=== PATIENT | male | born 1960 | race Caucasian/White ===

== ENCOUNTER 2017-04-18 13:08 | Day surgery (SDC) | payer BC ==
[2017-04-17 16:20] VITALS: BMI 29.5
[2017-04-18 14:21] LABS: #Eosinphils 0.2 thou/uL (0.0-0.7); #Lymphocytes 1.8 thou/uL (1.20-3.40); #Monocytes 0.6 thou/uL (0.11-0.59); #Neutrophils 2.8 thou/uL (1.40-6.50); %Basophils 0.9 % (0.0-1.0); %Lymphocytes 33.6 % (21.0-51.0); %Monocytes 11.2 % (0.0-10.0); %Neutrophils 51.4 % (42.0-75.0); Hemoglobin 13.8 g/dL (14.0-18.0); Mean Corpuscular HGB CONC 32.6 g/dL (32.0-36.0); Mean Corpuscular Hemoglobin 29.9 pg (27.0-31.0); Mean Corpuscular Volume 91.9 fl (80.0-94.0); Platelet Count 306 thou/uL (130-400); RBC Distribution Width 12.2 % (11.5-14.5); Red Blood Cell (RBC) Count 4.61 mill/uL (4.70-6.10); White Blood Cell (WBC) Count 5.4 thou/uL (4.8-10.8)
[2017-04-18] MEDS ORDERED: Fentanyl 100 MCG/2 ML VIAL ONE (14:46)
[2017-04-18] MEDS ORDERED: CEFAZOLIN/Water 2 GM/20 ML SYRINGE ONE (14:47)
[2017-04-18] MEDS ORDERED: Lidocaine 2% PF 5 ML VIAL ONE (15:21)
[2017-04-18] MEDS ORDERED: Bupivacaine PF 0.5% 30 ML VIAL ONE (15:21)
[2017-04-18] MEDS ORDERED: Neomycin-Polymyxin 1 ML AMP ONE (15:32)
[2017-04-18] MEDS ORDERED: Bacitracin Zinc Ointment 30 gm TUBE ONE (15:38)
[2017-04-18] MEDS ORDERED: ePHEDrine/0.9% NaCl/PF SYRINGE 50 mg/10 ml ONE (15:56)
[2017-04-18] MEDS ORDERED: Lidocaine 1% PF 5 ML VIAL ONE (15:56)
[2017-04-18] MEDS ORDERED: PHENYLEPHRINE-NS 100 MCG/ML 10 ML SYRINGE ONE (15:56)
[2017-04-18] MEDS ORDERED: Ondansetron HCl/PF 4 MG/2 ML Vial ONE (15:56)
[2017-04-18] MEDS ORDERED: Succinylcholine Chloride 20 MG/ML 10 ml SYRINGE FS ONE (15:56)
[2017-04-18] MEDS ORDERED: PROPOFOL 200 MG/20 ML VIAL ONE (15:56)
== END 2017-04-18 17:25 | disposition home or self-care (01) ==
LOC: SDC 13:08
PROVIDERS: ATTEND Podiatrist
PROC: 0Y6T0Z0 Detachment at Right 3rd Toe, Complete, Open Approach (ICD-10-PCS; principal; 2017-04-18)
DX: M86.9 Osteomyelitis, unspecified (principal); B95.61 Methicillin susceptible Staphylococcus aureus infection as the cause of diseases classified elsewhere; B95.2 Enterococcus as the cause of diseases classified elsewhere; F32.9 Major depressive disorder, single episode, unspecified; I10 Essential (primary) hypertension; I73.9 Peripheral vascular disease, unspecified; Z85.828 Personal history of other malignant neoplasm of skin; Z79.2 Long term (current) use of antibiotics; Z79.899 Other long term (current) drug therapy; Z96.642 Presence of left artificial hip joint; Z98.890 Other specified postprocedural states
CPT/HCPCS: 36415; 85025; 87070; 87077; 87186; 87205; J2001; J2405; J2704; J3010; S0020

== ENCOUNTER 2017-12-15 12:17 | Inpatient (IN) | payer BC ==
[2017-12-17] MEDS ORDERED: Bacitracin Zinc Ointment 30 gm TUBE ONE (06:43)
[2017-12-17] MEDS ORDERED: Sodium Chloride 0.9% 20 ML ONE (06:43)
[2017-12-17] MEDS ORDERED: Thrombin 5000 UNITS/5 ML VIAL ONE (06:43)
[2017-12-17 06:48] LABS: #Eosinphils 0.2 thou/uL (0.0-0.7); #Lymphocytes 2.2 thou/uL (1.20-3.40); #Monocytes 0.6 thou/uL (0.11-0.59); #Neutrophils 2.9 thou/uL (1.40-6.50); %Basophils 0.7 % (0.0-1.0); %Lymphocytes 37.1 % (21.0-51.0); %Monocytes 10.2 % (0.0-10.0); %Neutrophils 48.1 % (42.0-75.0); Hemoglobin 14.2 g/dL (14.0-18.0); Mean Corpuscular HGB CONC 34.9 g/dL (32.0-36.0); Mean Corpuscular Hemoglobin 31.5 pg (27.0-31.0); Mean Corpuscular Volume 90.4 fL (78.0-98.0); Mean Platelet Volume 6.8 fL (7.4-10.4); Platelet Count 246 thou/uL (130-400); RBC Distribution Width 11.9 % (11.5-14.5); Red Blood Cell (RBC) Count 4.49 mill/uL (4.70-6.10); White Blood Cell (WBC) Count 5.9 thou/uL (4.8-10.8)
[2017-12-17] MEDS ORDERED: Fentanyl 100 MCG/2 ML VIAL ONE ×3 (06:48→10:43)
[2017-12-17] MEDS ORDERED: CEFAZOLIN/Water 2 GM/20 ML SYRINGE ONE (06:51)
[2017-12-17] MEDS ORDERED: Midazolam HCl 2 mg/2 ml Vial ONE (06:59)
[2017-12-17 07:08] LABS: Anion Gap 12 mmol/L (10-20); BUN (Urea Nitrogen) 28 mg/dL (8.4-25.7); Calc. Creatinine Clearance 128 mL/min (70-130); Calcium 9.1 mg/dL (7.8-10.44); Carbon Dioxide 24 mmol/L (22-29); Chloride 108 mmol/L (98-107); Estimated GFR-MDRD 79; Glucose 97 mg/dL (70-105); Potassium 3.8 mmol/L (3.5-5.1); Sodium 140 mmol/L (136-145)
[2017-12-17] MEDS ORDERED: Albuterol Sulfate HFA (OR ONLY) ONE (08:38)
[2017-12-17] MEDS ORDERED: PHENYLEPHRINE-NS 100 MCG/ML 10 ML SYRINGE ONE ×2 (08:46→13:29)
[2017-12-17] MEDS ORDERED: Ondansetron HCl/PF 4 MG/2 ML Vial IVP PRN ×2 (09:23→10:00)
[2017-12-17] MEDS ORDERED: Meperidine HCl/PF 25 MG/ML VIAL SLOW IVP PRN (09:23)
[2017-12-17] MEDS ORDERED: Promethazine HCl 25 MG/ML VIAL IM PRN ×2 (09:23→09:57)
[2017-12-17] MEDS ORDERED: Promethazine HCl 25 MG/ML VIAL SLOW IVP PRN (09:23)
[2017-12-17] MEDS ORDERED: diphenhydrAMINE 25 MG CAP PO PRN (09:57)
[2017-12-17] MEDS ORDERED: HYDROcodone/Acetaminophen 10/325 mg Tablet PO PRN (09:57)
[2017-12-17] MEDS ORDERED: Promethazine 25 MG TAB PO PRN (09:57)
[2017-12-17] MEDS ORDERED: diphenhydrAMINE 50 MG/ML VIAL IVP PRN (09:57)
[2017-12-17] MEDS ORDERED: Promethazine HCl 12.5 MG SUPP PR PRN (09:57)
[2017-12-17] MEDS ORDERED: traMADol HCl 50 MG TAB PO PRN ×2 (09:57)
[2017-12-17] MEDS ORDERED: Bisacodyl 10 MG SUPP PR PRN (09:57)
[2017-12-17] MEDS ORDERED: Milk Of Magnesia 30 ML UDCUP PO PRN (09:57)
[2017-12-17] MEDS ORDERED: ALPRAZolam 0.5 MG TAB PO PRN (11:47)
[2017-12-17] MEDS: Sodium Chloride 0.9% 1,000 ML IV SCH ×2 (11:49→23:45)
[2017-12-17] MEDS: Morphine 4 MG/ML VIAL IV PRN ×2 (12:29→18:46)
--- NOTE | 2017-12-17 12:29 | OP ---
DATE OF PROCEDURE: 12/17/2017 SURGEON: Steve Viveros M.D. PUBLIC [employer] OUTREACH WORKER: Gabriela Stephen PROCEDURE: Anterior cervical discectomy C3-4, interbody arthrodesis, intravertebral biomechanical de vice, local morselized autograft, demineralized bone matrix, anterior titanium instrumentation C3-4, posterior approach C3-4 laminectomy, posterolateral arthrodesis, lateral mass screw instrumentation, demineralized bone matrix, local morselized autograft C3-C4. PROCEDURE IN DETAIL: The patient was brought to the operating room intubated and positioned supine i n modest extension on a gel-filled donut. Incision was made in the right precervical area and dissec ting medial to the sternocleidomastoid muscle, identified the anterior cervical spine and our level w as confirmed by x-ray. We placed distraction across C3-4, debrided anterior osteophytes and using th e operating microscope and microdissection techniques, completely decompressed the spinal cord from f oramen to foramen. The bony endplates were then decorticated for the purpose of arthrodesis and appr opriately sized intravertebral biomechanical PEEK device was brought into the field, filled with annamarie neralized bone matrix, local morselized autograft, and tapped into place securely at C3-4. Next, an anterior plate was brought in the field and secured to C3 and C4 using two 14 mm screws at each level . The wound was then extensively irrigated, immaculate hemostasis was secured, and the wound was camden sed in anatomic layers. The patient was then rolled into the prone position on gel-filled chest rolls with the head fixed in a neutral position in the lou heading pinner. A midline cervical incision was made exposing C3 and C 4 and our level was confirmed by x-ray. We performed complete C4 and complete C3 laminectomies compl etely decompressing the spinal cord. Lateral mass screws were then placed at right C3, right C4, sec ured by samuel, connected by nuts which were final tightened. The wound was then extensively irrigated, immaculate hemostasis was secured. A combination of demineralized bone matrix, local morselized aut ograft was laid over the laminar and posterolateral surfaces for the purpose of arthrodesis. Vancomy tamra powder was applied and the wound was closed in anatomic layers.
[2017-12-17] MEDS ORDERED: Dexamethasone 20 MG/5 ML VIAL ONE (13:29)
[2017-12-17] MEDS ORDERED: Lidocaine 1% PF 5 ML VIAL ONE (13:29)
[2017-12-17] MEDS ORDERED: Glycopyrrolate 0.2 MG/ML 5 ML SYRINGE ONE (13:29)
[2017-12-17] MEDS ORDERED: ePHEDrine/0.9% NaCl/PF SYRINGE 50 mg/10 ml ONE (13:29)
[2017-12-17] MEDS ORDERED: PROPOFOL 200 MG/20 ML VIAL ONE (13:29)
[2017-12-17] MEDS ORDERED: Ondansetron HCl/PF 4 MG/2 ML Vial ONE (13:29)
[2017-12-17 13:36] VITALS: BMI 28.3
[2017-12-17] MEDS: CEFAZOLIN/Water 2 GM/20 ML SYRINGE SLOW IVP SCH ×2 (14:00→21:34)
[2017-12-17] MEDS ORDERED: DICLOFENAC SODIUM 75 MG PO SCH (21:00)
[2017-12-17] MEDS: HYDROcodone/Acetaminophen 10/325 mg Tablet PO PRN (21:33)
[2017-12-17] MEDS: Tamsulosin HCl 0.4 MG CAP PO SCH (21:34)
[2017-12-18] MEDS: tiZANidine HCl 4 MG TAB PO PRN ×2 (06:18→12:23)
--- NOTE | 2017-12-18 07:29 | PRG ---
DATE OF SERVICE: 12/18/2017 Postoperative day #1, status post C3-4 anterior and posterior decompression and fusion. Overnight, the patient reports his pain was well controlled, although he did require p.r.n. doses of morphine. He is also using a muscle relaxer which he reports is significantly helpful with muscle spasms between the shoulder blades and along the back of the neck. He is tolerating a regular diet and up walking in the department. The patient did have some urinary retention overnight which required straight cath x1. We will continue to monitor his urinary output with intermittent bladder scans throughout the day. Pt is comfortable, NAD. He has improved strength and less dysesthesias in his LUE. Incisions are dry and soft. If his urinary retention resolves then I feel that he can likely be discharged this afternoon or in the morning. We will continue to monitor and nursing will notify me of his progress to assess whether he can be discharged this afternoon or reassess in the morning. NOEL
[2017-12-18] MEDS: Bupropion 150 MG XL TAB PO SCH (08:20)
[2017-12-18] MEDS: Tamsulosin HCl 0.4 MG CAP PO SCH ×2 (08:21→21:12)
[2017-12-18] MEDS: Multivit, Therapeutic 1 TAB PO SCH (08:22)
[2017-12-18] MEDS ORDERED: LISDEXAMFETAMINE DIMESYLATE PO SCH (09:00)
[2017-12-18] MEDS ORDERED: TADALAFIL PO SCH (09:00)
[2017-12-18] MEDS: Sodium Chloride 0.9% 1,000 ML IV SCH (12:15)
[2017-12-18] MEDS: HYDROcodone/Acetaminophen 10/325 mg Tablet PO PRN (21:15)
[2017-12-19] MEDS: Sodium Chloride 0.9% 1,000 ML IV SCH (03:24)
[2017-12-19 08:05] VITALS: BP 162/97; TEMP 98.5
[2017-12-19] MEDS ORDERED: Tamsulosin HCl 0.4 MG CAP PO SCH (09:00)
[2017-12-19] MEDS: Bupropion 150 MG XL TAB PO SCH (09:59)
[2017-12-19] MEDS: Multivit, Therapeutic 1 TAB PO SCH (10:00)
[2017-12-19] MEDS: tiZANidine HCl 4 MG TAB PO PRN (10:00)
[2017-12-19] MEDS: Tamsulosin HCl 0.4 MG CAP PO SCH (10:00)
[2017-12-19] MEDS: HYDROcodone/Acetaminophen 10/325 mg Tablet PO PRN (10:58)
--- NOTE | 2017-12-19 12:20 | DIS ---
DATE OF ADMISSION: 12/17/2017 DATE OF DISCHARGE: 12/19/2017 ATTENDING PHYSICIAN: Dr. Steve Viveros HOSPITAL COURSE: Patient is a 57-year-old male status post C3-4 anterior and posterior dec ompression and fusion. He is postoperative day #2. He reports his pain is well controlled with p.o. medications, he is tolerating regular diet. Postoperatively, the patient did have some urinary rete ntion which required p.r.n. straight cath x2. He is now voiding appropriately and no longer retainin g. He does have a history of BPH and is taking Flomax 0.4 mg b.i.d. We will continue this medicatio n and will recommend outpatient Urology followup. With regards to his postoperative incision, it nereida ears to be healing well and is soft in the anterior portion and remains dry over both dressings. He has some improved sensation in the left upper extremity and feels like he may be improving some stren gth, although this is not appreciated on my exam at this time. At this point, I feel the patient cou ld be appropriately discharged to home and we will plan to follow up in the office in 2 weeks. I hav e discussed home care precautions and provided patient with prescriptions for hydrocodone, Zanaflex a nd Keflex. Please reach out to Neurosurgery for additional questions or concerns.
== END 2017-12-19 11:18 | disposition home or self-care (01) | DRG 455 ==
LOC: SURG A 12-17 06:02
PROVIDERS: ADMIT Neurological Surgery; ATTEND Neurological Surgery
PROC: 0RG10AJ Fusion of Cervical Vertebral Joint with Interbody Fusion Device, Posterior Approach, Anterior Column, Open Approach (ICD-10-PCS; principal; 2017-12-17)
PROC: 0RG1071 Fusion of Cervical Vertebral Joint with Autologous Tissue Substitute, Posterior Approach, Posterior Column, Open Approach (ICD-10-PCS; 2017-12-17)
PROC: 0RB30ZZ Excision of Cervical Vertebral Disc, Open Approach (ICD-10-PCS; 2017-12-17)
DX: M47.12 Other spondylosis with myelopathy, cervical region (principal); I10 Essential (primary) hypertension; E78.00 Pure hypercholesterolemia, unspecified; F32.9 Major depressive disorder, single episode, unspecified; Z89.429 Acquired absence of other toe(s), unspecified side
CPT/HCPCS: 76001; 80048; 85025; 93005; 93010; A4216; C1713; C1768; C1776; G8978-GP-CI; G8979-GP-CI; G8980-GP-CI; J1100; J2001; J2250; J2270; J2405; J2704; J3010; J3370; J3490

== ENCOUNTER 2017-12-25 13:01 | Outpatient (CLI) | payer BC ==
--- NOTE | 2017-12-25 14:45 | RAD ---
CERVICAL SPINE THREE VIEWS: HISTORY: Cervical spine stenosis. Status post surgery. Follow-up exam. COMPARISON: None. FINDINGS: Three views of the cervical spine demonstrate an anterior fusion plate with transvertebral body screw s at C3 and C4. There is associated posterior element fusion hardware at C3 and C4, traversing the r ight facet. No obvious perihardware lucency. There is a prosthesis at C3-C4 with the anterior aspec t of the prosthesis that is just at the anterior-inferior aspect of C3 and slightly superior to the a nterior-superior aspect of C4. There is severe loss of disk space height and osteophyte formation at C4-C5 and C5-C6 and likely at C6-C7. There is some loss of vertebral body height at C5 and C6, as w ell as C7. There is minimal prevertebral soft tissue swelling. Posterior skin michelle are noted. IMPRESSION: 1. Fusion changes and post surgical changes as above. 2. Presumed chronic changes with loss of disk space height and loss of vertebral body height, as keaton cribed above. POS: ADAM
== END 2017-12-25 13:02 | disposition home or self-care (01) ==
LOC: TBSIIMAG 13:01
PROVIDERS: ATTEND Physician Assistant
DX: M48.02 Spinal stenosis, cervical region (principal); M48.8X2 Other specified spondylopathies, cervical region; G95.9 Disease of spinal cord, unspecified; Z98.1 Arthrodesis status
CPT/HCPCS: 72040

== ENCOUNTER 2018-02-10 15:03 | Outpatient (CLI) | payer BC ==
--- NOTE | 2018-02-10 16:23 | RAD ---
CERVICAL SPINE THREE VIEWS: History: Follow up after surgery. FINDINGS: Anterior cervical fusion with plate and screws at the C3-4 level are noted. Minimal anterolisthesis o f C2 on C3 and some minimal anterolisthesis of C3 on C4, felt to be fairly similar. Markers of the di sc implant remain in the confines of the disc level. Right sided facet screws are also seen at the C3 -4 level. Severe disc narrowing again demonstrated in the lower cervical spine. IMPRESSION: Stable exam. POS: ROBERTC
== END 2018-02-10 15:04 | disposition home or self-care (01) ==
LOC: TBSIIMAG 15:03
PROVIDERS: ATTEND Neurological Surgery
DX: M48.061 Spinal stenosis, lumbar region without neurogenic claudication (principal)
CPT/HCPCS: 72040

== ENCOUNTER 2018-03-04 16:50 | Outpatient (CLI) | payer BC ==
--- NOTE | 2018-03-05 11:43 | MRI ---
MRI LUMBAR SPINE WITHOUT CONTRAST: Date: 03/04/18 HISTORY: Low back pain and left thigh pain. Neuropathy. COMPARISON: MRI lumbar spine dated 07/04/16. FINDINGS: The aortic contour is nonaneurysmal. No retroperitoneal adenopathy. No hydronephrosis. Conus medullaris terminates near the superior end plate of L1. There is crowding of the nerve roots throughout the lumbar spine due to increased anterior and lamp decorator ior epidural fat and ligamentum flavum hypertrophy, as well as posterior disc osteophyte complexes. No marrow infiltrative process. There is unchanged appearance, likely a fat pore L2 vertebral hemangi mukund. Modic Type I and II changes at L1 and L2. Levels are as follows: L1-2: Severe degenerative disc space height loss. Circumferential disc osteophyte complex. Severe fa cet arthropathy. The posterior disc osteophyte complex narrows the spinal canal to approximately 5.0 mm. Abnormal increased posterior epidural fat. Severe left and moderate to severe right-sided neural foraminal narrowing with abutment of the exiting nerve roots. L2-3: Moderate degenerative disc space height loss. Circumferential disc bulge. Abnormally increased posterior epidural fat. Spinal canal is narrowed to approximately 4.0 mm. Moderate to severe facet a rthropathy. Moderate bilateral neural foraminal narrowing with abutment of the exiting nerve roots bi laterally. L3-4: Severe degenerative disc space height loss. Circumferential disc osteophyte complex. Severe fa cet arthropathy. Severe bilateral neural foraminal narrowing with abutment of the exiting and fely ing nerve roots. Abnormally increased posterior epidural fat and ligamentum flavum hypertrophy. Spina l canal measures approximately 4.0 mm. L4-5: There is severe degenerative facet arthropathy. Circumferential disc bulge. There is moderate to severe left and moderate right-sided neural foraminal narrowing with abutment of the exiting and t raversing nerve roots on the left. L5-S1: Severe degenerative disc space height loss posteriorly. Severe facet arthrosis. Combination o f these findings causes moderate to severe bilateral neural foraminal narrowing with abutment of the exiting and traversing nerve roots bilaterally. IMPRESSION: Markedly advanced spondylosis as described above, which is mildly progressed from the comparison exam ination. POS: OFF
== END 2018-03-04 16:51 | disposition home or self-care (01) ==
LOC: MRI 16:50
PROVIDERS: ATTEND Neurological Surgery
DX: M47.26 Other spondylosis with radiculopathy, lumbar region (principal)
CPT/HCPCS: 72148

== ENCOUNTER 2018-12-02 16:36 | Outpatient (CLI) | payer BC ==
--- NOTE | 2018-12-02 17:05 | RAD ---
Right foot 3 views HISTORY: Foot pain. Swelling. FINDINGS: Lisfranc joint alignment is anatomic. Pes planus on the lateral view. Joint space narrowing throughout the hindfoot and midfoot. Extensive subcortical cystic change throughout the mid foot. Osteophytosis most pronounced at the distal tibia. Soft tissue swelling about the midfoot. Amputation of the third toe at the base of the proximal phalanx. IMPRESSION: Extensive subcortical cystic change throughout the mid foot. More aggressive processes montoya ch as neuropathic joint or infection must be considered. Please correlate with clinical findings and history. Soft tissue swelling is also apparent about the midfoot and forefoot. Amputation of the third toe.
--- NOTE | 2018-12-02 17:05 | RAD ---
Right ankle 3 views HISTORY: Right ankle pain and swelling. FINDINGS: Ankle mortise and talar dome are intact. Mild/moderate osteophytosis. Soft tissue swelling about the ankle. Abnormalities of the foot are detailed in a separate report. IMPRESSION: Soft tissue swelling. Degenerative changes about the ankle. No acute osseous abnormalitie s are demonstrated.
== END 2018-12-02 16:37 | disposition home or self-care (01) ==
LOC: SCSRAD 16:36
PROVIDERS: ATTEND Podiatrist
DX: R60.0 Localized edema (principal); M25.571 Pain in right ankle and joints of right foot; M79.671 Pain in right foot; M79.89 Other specified soft tissue disorders; M19.071 Primary osteoarthritis, right ankle and foot

== ENCOUNTER 2021-05-24 12:45 | Outpatient (CLI) | payer BC ==
[2021-05-24 13:53] LABS: Mean Corpuscular HGB CONC 32.5 g/dL (32.0-36.0); Mean Corpuscular Hemoglobin 29.4 pg (27.0-33.0); Mean Corpuscular Volume 90.4 fl (81.2-95.1); Mean Platelet Volume 9.8 fl (7.4-10.4); Platelet Count 253 10x3/uL (150-450); RBC Distribution Width 12.9 % (11.5-14.5); Red Blood Cell (RBC) Count 4.77 10x6/uL (4.32-5.72); White Blood Cell (WBC) Count 5.3 10x3/uL (3.5-10.5)
[2021-05-24 14:05] LABS: Bilirubin Neg (Negative); Blood, Urine Negative (Negative); Clarity Clear (Clear); Glucose, Urine (Dipstick) Normal (Negative); Ketone, Urine Negative (Negative); Leukocyte Negative (Negative); Nitrite Negative (Negative); Protein, Urine (Dipstick) Negative (Neg-Trace); Urobilinogen Normal mg/dL (Less than 2); pH, Urine 6.5 (5.0-9.0)
[2021-05-24 14:11] LABS: Anion Gap 13 mmol/L (10-20); BUN (Urea Nitrogen) 20 mg/dL (8.4-25.7); Calc. Creatinine Clearance 0 mL/min (70-130); Carbon Dioxide 22 mmol/L (23-31); Chloride 109 mmol/L (98-107); Glucose 116 mg/dL (80-115); Sodium 140 mmol/L (136-145)
[2021-05-24 14:17] LABS: Bacteria/HPF Rare-Few HPF (None Seen); Mucous/LPF Rare LPF (<2+); RBC/HPF 0-3 HPF (0-3); Squamous Epithelial 0-3 HPF (0-3); WBC/HPF 0-3 HPF (0-3)
[2021-05-25 13:49] LABS: SARS-CoV-2 PCR by NAA Not Detected (NotDetected)
== END 2021-05-24 12:46 | disposition home or self-care (01) ==
LOC: LABBT 12:45
PROVIDERS: ATTEND Urology
DX: Z01.818 Encounter for other preprocedural examination (principal); N40.0 Benign prostatic hyperplasia without lower urinary tract symptoms; Z20.822 Contact with and (suspected) exposure to COVID-19
CPT/HCPCS: 80048; 81001; 85027; 87086; 93005; 93010; U0003; U0005

== ENCOUNTER 2021-08-16 13:32 | Outpatient (CLI) | payer BC ==
[2021-08-16 23:38] LABS: SARS-CoV-2 PCR by NAA Not Detected (NotDetected)
== END 2021-08-16 13:33 | disposition home or self-care (01) ==
LOC: LABBT 13:32
PROVIDERS: ATTEND Urology
DX: N40.1 Benign prostatic hyperplasia with lower urinary tract symptoms (principal); Z20.822 Contact with and (suspected) exposure to COVID-19
CPT/HCPCS: U0003; U0005